=== PATIENT | male | born 1990 | race American Indian/Alaskan Native ===

== ENCOUNTER 2018-06-03 03:17 | Emergency (ER) | payer OTHER ==
[2018-06-03] MEDS ORDERED: TYLENOL PO ONE (03:23)
[2018-06-03] MEDS ORDERED: TYLENOL ONE (03:26)
[2018-06-03 04:14] LABS: Hematocrit 37.6 % (35.5-45.6); Hemoglobin 12.6 gm/dl (11.8-15.2); Mean Corpuscular HGB Conc 34 % (32-34); Mean Corpuscular Volume 79 fl (84-94); Platelet Count 157 K/mm3 (140-440); Red Blood Count 4.73 M/mm3 (3.65-5.03); Red Cell Distribution Width 14.3 % (13.2-15.2)
[2018-06-03 04:40] LABS: Alanine Aminotransferase 19 units/L (7-56); Albumin 3.7 g/dL (3.9-5); BUN/Creatinine Ratio 7; Blood Urea Nitrogen 8 mg/dL (9-20); Calcium 8.6 mg/dL (8.4-10.2); Hemolysis Index 3
[2018-06-03 06:26] LABS: Anisocytosis Few; Band Neutrophils # (Manual) 0.4 K/mm3; Basophils % (Manual) 0 % (0.0-1.8); Eosinophils % (Manual) 0 % (0.0-4.3); Total Cells Counted 100
[2018-06-03 06:27] LABS: Platelet Estimate Consistent w Auto
[2018-06-03] MEDS ORDERED: MORPHINE IV ONE (06:33)
[2018-06-03] MEDS ORDERED: ZOFRAN IV ONE (06:33)
[2018-06-03] MEDS ORDERED: NACL 0.9% 1000 ML 1,000 ML IV ONE (06:33)
[2018-06-03 08:14] LABS: Bilirubin,Urine NEG (Negative); Blood,Urine NEG (Negative); Color,Urine Yellow (Yellow); Mucus,Urine FEW /HPF; WBC,Urine < 1.0 /HPF (0.0-6.0)
--- NOTE | 2018-06-03 08:45 | Cat Scan Report ---
CT ABDOMEN PELVIS WITH CONTRAST: HISTORY: Right lower quadrant pain, fever, HIV positive. COMPARISON: none. TECHNIQUE: Helical CT in 1.25mm intervals following IV contrast. Sagittal and coronal reconstructions. FINDINGS: Lung bases: Normal. Liver: Normal. Biliary system: Normal. Pancreas: Normal. Spleen: There is moderate splenomegaly measuring 15.9 x 9.4 x 10.4 cm. No focal splenic lesion. Kidneys/ureters/bladder: Normal. Adrenal glands: Normal. Aorta: Normal. Intestines: No oral contrast was administered which limits this exam. Having said that, there appears to be moderate circumferential thickening of the rectum. There are a few scattered reactive lymph nodes in the perirectal fat. No free air, obstruction or abscess. There is moderate stool in the colon. Appendix: I believe I see the appendix in the right lower quadrant which is unremarkable. No findings to suggest acute appendicitis. Ascites: None. Adenopathy: None. Musculoskeletal: Normal. IMPRESSION: Moderate circumferential thickening of the rectum as described. Correlate for proctitis. Mild fecal retention.
[2018-06-03] MEDS ORDERED: ROCEPHIN/NS 1 GM/50 ML 1 GM/50 ML BAG IV ONE (10:43)
--- NOTE | 2018-06-03 10:49 | Emergency Department Report ---
ED Abdominal Pain HPI - General Chief Complaint: Abdominal Pain Stated Complaint: ABDOMINAL PAIN Time Seen by Provider: 06/03/18 06:31 Source: patient Mode of arrival: Ambulatory Limitations: No Limitations - History of Present Illness Initial Comments: 27-year-old male complains of vague but mostly lower abdominal pain. He states he's been straining at stool and saw a few drops of blood. He denies diarrhea. He is HIV-positive. He states he's had discomfort for the last 3-4 weeks but has not presented to his infectious disease clinic. He does not know what his CD4 count is. He is taking antiretroviral could not provide that information to the nursing staff at triage. He was not aware of fever but was found to have a temperature of 100.8. MD Complaint: abdominal pain -: week(s) Location: suprapubic Radiation: none Migration to: no migration Severity scale (0 -10): 6 Quality: aching Consistency: intermittent Improves With: nothing Worsens With: nothing Context: other (HIV positive) Associated Symptoms: denies other symptoms - Related Data Previous Rx's Medication Instructions Recorded Last Taken Type Amoxicillin/Potassium Clav 1 each PO BID #20 tablet 06/03/18 Unknown Rx [Augmentin 500-125 Tablet] Docusate Sodium [Colace] 50 mg PO BID #30 capsule 06/03/18 Unknown Rx HYDROcodone/ACETAMINOPHEN [Traer 1 each PO Q6H #10 tablet 06/03/18 Unknown Rx 5-325 Tablet] Allergies Allergy/AdvReac Type Severity Reaction Status Date / Time No Known Allergies Allergy Verified 06/03/18 03:30 ED Review of Systems ROS: Stated complaint: ABDOMINAL PAIN Other details as noted in HPI Constitutional: denies: chills, fever Eyes: denies: eye pain, eye discharge, vision change ENT: denies: ear pain, throat pain Respiratory: denies: cough, shortness of breath, wheezing Cardiovascular: denies: chest pain, palpitations Endocrine: no symptoms reported Gastrointestinal: abdominal pain, hematochezia (minimal). denies: diarrhea Genitourinary: denies: urgency, dysuria Musculoskeletal: denies: back pain, joint swelling, arthralgia Skin: denies: rash, lesions Neurological: denies: headache, weakness, paresthesias Psychiatric: denies: anxiety, depression Hematological/Lymphatic: denies: easy bleeding, easy bruising ED Past Medical Hx - Past Medical History Previous Medical History?: Yes Hx HIV: Yes - Surgical History Past Surgical History?: No - Social History Smoking Status: Current Some Day Smoker Substance Use Type: Marijuana - Medications Home Medications: Home Medications Medication Instructions Recorded Confirmed Last Taken Type Amoxicillin/Potassium Clav 1 each PO BID #20 tablet 06/03/18 Unknown Rx [Augmentin 500-125 Tablet] Docusate Sodium [Colace] 50 mg PO BID #30 capsule 06/03/18 Unknown Rx HYDROcodone/ACETAMINOPHEN [Traer 1 each PO Q6H #10 tablet 06/03/18 Unknown Rx 5-325 Tablet] ED Physical Exam - General Limitations: No Limitations General appearance: alert, in no apparent distress - Head Head exam: Present: atraumatic, normocephalic - Eye Eye exam: Present: normal appearance. Absent: scleral icterus - ENT ENT exam: Present: mucous membranes moist - Neck Neck exam: Present: normal inspection. Absent: tenderness, meningismus - Respiratory Respiratory exam: Present: normal lung sounds bilaterally. Absent: respiratory distress - Cardiovascular Cardiovascular Exam: Present: regular rate, normal rhythm. Absent: systolic murmur, diastolic murmur, rubs, gallop - GI/Abdominal GI/Abdominal exam: Present: soft, normal bowel sounds. Absent: distended, tenderness, guarding, rebound, rigid, organomegaly, mass, bruit, pulsatile mass, hernia - Rectal Rectal exam: Present: deferred - Extremities Exam Extremities exam: Present: normal inspection - Back Exam Back exam: Present: normal inspection - Neurological Exam Neurological exam: Present: alert, oriented X3, CN II-XII intact. Absent: motor sensory deficit - Psychiatric Psychiatric exam: Present: normal affect, normal mood - Skin Skin exam: Present: warm, dry, intact, normal color. Absent: rash ED Course Vital Signs 06/03/18 06/03/18 06/03/18 03:18 03:21 03:24 Temperature 100.8 F H 100.8 F H Pulse Rate 76 76 Respiratory 18 18 16 Rate Blood Pressure 122/71 122/71 O2 Sat by Pulse 99 98 Oximetry 06/03/18 06/03/18 06/03/18 04:26 04:30 04:45 Temperature Pulse Rate 70 67 73 Respiratory 21 23 24 Rate Blood Pressure 127/51 119/66 O2 Sat by Pulse Oximetry 06/03/18 06/03/18 06/03/18 04:52 05:00 05:15 Temperature Pulse Rate 63 72 Respiratory 20 25 H 18 Rate Blood Pressure 114/67 123/71 O2 Sat by Pulse 96 Oximetry 06/03/18 07:31 Temperature 98.8 F Pulse Rate Respiratory Rate Blood Pressure O2 Sat by Pulse Oximetry ED Medical Decision Making - Lab Data Result diagrams: 06/03/18 03:46 06/03/18 03:46 Laboratory Results - last 24 hr 06/03/18 06/03/18 06/03/18 03:46 03:46 07:48 WBC 7.7 RBC 4.73 Hgb 12.6 Hct 37.6 MCV 79 L MCH 27 L MCHC 34 RDW 14.3 Plt Count 157 [place]kinson % (Auto) Claims Support Specialist Add Manual Diff Complete Total Counted 100 Seg Neuts % (Manual) 42.0 Band Neutrophils % 5.0 Lymphocytes % (Manual) 30.0 Reactive Lymphs % (Man) 0 Monocytes % (Manual) 19.0 H Eosinophils % (Manual) 0 Basophils % (Manual) 0 Metamyelocytes % 4.0 Myelocytes % 0 Promyelocytes % 0 Blast Cells % 0 Nucleated RBC % Not Reportable Seg Neutrophils # Man 3.2 Band Neutrophils # 0.4 Lymphocytes # (Manual) 2.3 Abs React Lymphs (Man) 0.0 Monocytes # (Manual) 1.5 H Eosinophils # (Manual) 0.0 Basophils # (Manual) 0.0 Metamyelocytes # 0.3 Myelocytes # 0.0 Promyelocytes # 0.0 Blast Cells # 0.0 WBC Morphology Not Reportable Hypersegmented Neuts Not Reportable Hyposegmented Neuts Not Reportable Hypogranular Neuts Not Reportable Smudge Cells Not Reportable Toxic Granulation Not Reportable Toxic Vacuolation Not Reportable Dohle Bodies Not Reportable Pelger-Huet Anomaly Not Reportable Pastora Rods Not Reportable Platelet Estimate Consistent w auto Clumped Platelets Not Reportable Plt Clumps, EDTA Not Reportable Large Platelets Not Reportable Giant Platelets Not Reportable Platelet Satelliting Not Reportable Plt Morphology Comment Not Reportable RBC Morphology Not Reportable Dimorphic RBCs Not Reportable Polychromasia Not Reportable Hypochromasia Not Reportable Poikilocytosis Not Reportable Anisocytosis Few Microcytosis Not Reportable Macrocytosis Not Reportable Spherocytes Not Reportable Pappenheimer Bodies Not Reportable Sickle Cells Not Reportable Target Cells Not Reportable Tear Drop Cells Not Reportable Ovalocytes Not Reportable Helmet Cells Not Reportable [place] Bodies Not Reportable [place] Rings Not Reportable [place] Cells Not Reportable Bite Cells Not Reportable Crenated Cell Not Reportable Elliptocytes Not Reportable Acanthocytes (Spur) Not Reportable Rouleaux Not Reportable Hemoglobin C Crystals Not Reportable Schistocytes Not Reportable Malaria parasites Not Reportable [place] Bodies Not Reportable Hem Pathologist Commnt No Sodium 132 L Potassium 4.1 Chloride 94.1 L Carbon Dioxide 26 Anion Gap 16 BUN 8 L Creatinine 1.1 Estimated GFR > 60 BUN/Creatinine Ratio 7 Glucose 105 H Calcium 8.6 Total Bilirubin 0.60 AST 28 ALT 19 Alkaline Phosphatase 80 Total Protein 8.1 Albumin 3.7 L Albumin/Globulin Ratio 0.8 Lipase 24 Urine Color Yellow Urine Turbidity Clear Urine pH 6.0 Ur Specific [place] 1.008 Urine Protein 30 mg/dl Urine Glucose (UA) Neg Urine Ketones Neg Urine Blood Neg Urine Nitrite Neg Urine Bilirubin Neg Urine Urobilinogen 2.0 Ur Leukocyte Esterase Neg Urine WBC (Auto) < 1.0 Urine RBC (Auto) 1.0 Urine Mucus Few - Radiology Data Radiology results: report reviewed CT was consistent with proctitis otherwise no acute process Critical care attestation.: If time is entered above; I have spent that time in minutes in the direct care of this critically ill patient, excluding procedure time. ED Disposition Clinical Impression: Proctitis, HIV positive Disposition: DC-01 TO HOME OR SELFCARE Is pt being admited?: No Does the pt Need Aspirin: No Condition: Stable Instructions: Proctitis (ED) Additional Instructions: Is very important that he follow up with your infectious disease clinic as soon as possible. Rx as directed. I have also given Name of the gastroenterology specialty group and a local primary care clinic. Return any acute change or problem. Prescriptions: Amoxicillin/Potassium Clav [Augmentin 500-125 Tablet] 1 each PO BID #20 tablet Docusate Sodium [Colace] 50 mg PO BID #30 capsule HYDROcodone/ACETAMINOPHEN [Traer 5-325 Tablet] 1 each PO Q6H #10 tablet Referrals: PRIMARY CARE, [Primary Care Provider] - 3-5 Days [facility] [Provider Group] - 3-5 Days [facility] [Provider Group] - 3-5 Days Time of Disposition: 11:08
[2018-06-03 11:48] VITALS: BP 120/72
== END 2018-06-03 11:47 | disposition home or self-care (01) ==
LOC: ED 03:17
DX: K62.89 Other specified diseases of anus and rectum (principal)
CPT/HCPCS: 36415; 74177; 80053; 81001; 83690; 85007; 85025; 96365; 96375; 99284; J0696; J2270; J2405; J7030; Q9967; 96374